=== PATIENT | male | born 1985 | race Caucasian/White ===

== ENCOUNTER 2024-12-14 15:52 | Emergency (ER) | payer SELFPAY ==
[~2024-12-14] VITALS: Ht 167.6 cm; Wt 76.0 kg
[2024-12-14 16:06] VITALS: BP 126/70; PULSE 82; RESP 18; TEMP 36.9; O2SAT 99
[2024-12-14] MEDS ORDERED: BO1 TP (18:06)
[2024-12-14] MEDS: TETANUS, DIPHTHERIA, PERTUSSIS VAC/PF 0.5ML (>10YR OLD) IM ONE (18:19)
[2024-12-14 18:20] VITALS: TEMP 98.4
[2024-12-14] MEDS: LIDOCAINE HCL 1% 20ML VIAL INFIL ONE (18:20)
[2024-12-14] MEDS: ACETAMINOPHEN 500MG TABLET PO ONE (18:20)
== END 2024-12-14 18:23 | disposition home or self-care (01) ==
LOC: ER 15:52
DX: S61.217A Laceration without foreign body of left little finger without damage to nail, initial encounter (principal); I10 Essential (primary) hypertension; Z23 Encounter for immunization; W18.30XA Fall on same level, unspecified, initial encounter; Y93.89 Activity, other specified; Y92.89 Other specified places as the place of occurrence of the external cause; Y99.8 Other external cause status
CPT/HCPCS: 99284; 73030; 73120; 90715; 90471; J2003